=== PATIENT | female | born 1985 | race Hispanic/Latino ===

== ENCOUNTER 2023-08-02 03:19 | Inpatient (IN) | payer MEDICAID, OTHER ==
[2023-08-02 04:20] VITALS: BMI 35.4
[2023-08-02] MEDS ORDERED: hydrALAZINE 20 MG/ML VIAL SLOW IVP PRN ×2 (04:21→07:44)
[2023-08-02] MEDS ORDERED: Promethazine HCl 25 MG/ML VIAL IM PRN ×2 (04:21→07:18)
[2023-08-02] MEDS ORDERED: Ondansetron PF 4 MG/2 ML Vial IVP PRN ×4 (04:21→07:44)
[2023-08-02] MEDS ORDERED: Oxytocin 30 units/NS 500 ML 500 ML IV SCH (04:30)
[2023-08-02] MEDS ORDERED: Bicitra 30 ML UDCUP PO PRN (04:32)
[2023-08-02] MEDS ORDERED: Famotidine/PF 20 mg/2ml Vial SLOW IVP PRN (04:32)
[2023-08-02] MEDS ORDERED: Azithromycin 500 MG in Sodium Chloride 0.9% 250 ML 250 ML IVPB SCH (04:45)
[2023-08-02] MEDS ORDERED: CEFAZOLIN 2 GM in Sodium Chloride 0.9% 100 ML IVPB SCH (04:45)
[2023-08-02 04:55] LABS: Hematocrit 36.4 % (34.9-44.5); Hemoglobin 12.2 g/dL (12.0-15.5); Mean Corpuscular HGB CONC 33.5 g/dL (32.0-36.0); Mean Corpuscular Volume 92.6 fl (81.6-98.3); Mean Platelet Volume 11.4 fl (7.4-10.4); Platelet Count 240 10x3/uL (150-450); RBC Distribution Width 13.7 % (11.5-14.5); Red Blood Cell (RBC) Count 3.93 10x6/uL (3.90-5.03); White Blood Cell (WBC) Count 10.4 10x3/uL (3.5-10.5)
[2023-08-02 05:09] LABS: Syphilis Antibody Nonreactive (Nonreactive); Syphilis Antibody Index 0.03 S/CO (<1.00 Non-Reactive)
[2023-08-02 05:11] LABS: HBSAg Index 0.13 S/CO (0-0.99); Hep B Surf Ag - L&D Non-Reactive S/CO (NonReactive)
[2023-08-02] MEDS ORDERED: Dexamethasone 4 mg/ml Vial ONE (05:16)
[2023-08-02] MEDS ORDERED: Ondansetron PF 4 MG/2 ML Vial ONE (05:16)
[2023-08-02] MEDS ORDERED: fentaNYL 50 mcg/mL 1 mL Vial ONE (05:17)
[2023-08-02] MEDS ORDERED: Oxytocin 10 UNITS/ML VIAL ONE ×2 (05:17→06:03)
[2023-08-02] MEDS ORDERED: Morphine PF 10 MG/10 ML VIAL ONE (05:18)
[2023-08-02] MEDS ORDERED: Ketorolac Tromethamine 30 MG/ML VIAL ONE (06:02)
[2023-08-02] MEDS ORDERED: Erythromycin Base 0.5% Oint 1 GM TUBE ONE (06:52)
[2023-08-02] MEDS ORDERED: Phytonadione Neonatal 1 MG/0.5 ML AMP ONE (06:53)
[2023-08-02] MEDS ORDERED: Hepatitis B Vaccine 10 MCG/0.5 ML SYR ONE (06:53)
[2023-08-02] MEDS ORDERED: Promethazine HCl 25 MG SUPP PR PRN (07:18)
[2023-08-02] MEDS ORDERED: Naloxone HCl 0.4 mg/ml Vial IVP PRN ×2 (07:18)
[2023-08-02] MEDS ORDERED: Naloxone HCl 0.4 mg/ml Vial IV PRN (07:18)
[2023-08-02] MEDS ORDERED: Meperidine HCl/PF 25 MG/ML VIAL SLOW IVP PRN (07:18)
[2023-08-02] MEDS ORDERED: fentaNYL 50 mcg/mL 1 mL Vial SLOW IVP PRN (07:18)
[2023-08-02] MEDS ORDERED: diphenhydrAMINE 50 MG/ML VIAL IVP PRN (07:18)
[2023-08-02] MEDS ORDERED: Moisturizing Cream (Eucerin) 113 GM JAR TOP PRN (07:18)
[2023-08-02] MEDS ORDERED: Ketorolac Tromethamine 30 MG/ML VIAL IVP SCH (07:30)
[2023-08-02] MEDS ORDERED: Communication Order-Pharmacy FS SCH (07:30)
[2023-08-02] MEDS ORDERED: Bisacodyl 10 MG SUPP PR PRN (07:44)
[2023-08-02] MEDS ORDERED: diphenhydrAMINE 25 MG CAP PO PRN (07:44)
[2023-08-02] MEDS ORDERED: Lanolin Ointment 7 GM TUBE TOP PRN (07:44)
[2023-08-02] MEDS ORDERED: Boostrix 0.5 ML (Tdap) VIAL (>/=7 yrs of age) IM ONE (07:44)
[2023-08-02] MEDS ORDERED: Simethicone Chewable 80 MG TAB PO PRN (07:44)
[2023-08-02] MEDS: Ferrous Sulfate 325 MG TAB PO SCH ×2 (09:38→21:34)
[2023-08-02] MEDS: Docusate 100 MG CAP PO SCH ×2 (10:49→21:34)
[2023-08-02] MEDS: Prenatal Vitamin 1 TAB PO SCH (10:49)
[2023-08-02] MEDS: Ketorolac Tromethamine 30 MG/ML VIAL IVP PRN ×2 (14:22→20:14)
[2023-08-02] MEDS ORDERED: HYDROcodone/Acetaminophen 5/325 mg Tablet PO PRN (19:30)
[2023-08-03 04:26] LABS: Hematocrit 26.8 % (34.9-44.5)
[2023-08-03 04:27] LABS: Hemoglobin 9.1 g/dL (12.0-15.5); Mean Corpuscular Hemoglobin 32.2 pg (27.0-33.0); Mean Corpuscular Volume 94.7 fl (81.6-98.3); Mean Platelet Volume 11.4 fl (7.4-10.4); Platelet Count 195 10x3/uL (150-450); RBC Distribution Width 13.9 % (11.5-14.5); Red Blood Cell (RBC) Count 2.83 10x6/uL (3.90-5.03); White Blood Cell (WBC) Count 8.7 10x3/uL (3.5-10.5)
[2023-08-03] MEDS: Ketorolac Tromethamine 30 MG/ML VIAL IVP PRN (05:50)
[2023-08-03] MEDS ORDERED: Acetaminophen 325 MG TAB PO PRN (06:49)
[2023-08-03] MEDS: Ferrous Sulfate 325 MG TAB PO SCH ×2 (07:48→21:34)
[2023-08-03] MEDS: Docusate 100 MG CAP PO SCH ×2 (07:48→21:34)
[2023-08-03] MEDS: Prenatal Vitamin 1 TAB PO SCH (07:48)
[2023-08-03] MEDS: HYDROcodone/Acetaminophen 5/325 mg Tablet PO PRN ×4 (07:48→21:35)
[2023-08-03] MEDS: Ibuprofen 800 MG TAB PO SCH ×2 (13:52→21:34)
[2023-08-04] MEDS: HYDROcodone/Acetaminophen 5/325 mg Tablet PO PRN (05:47)
[2023-08-04] MEDS: Ibuprofen 800 MG TAB PO SCH (05:47)
[2023-08-04 07:29] VITALS: BP 98/55; TEMP 98.1
[2023-08-04] MEDS: Prenatal Vitamin 1 TAB PO SCH (10:17)
[2023-08-04] MEDS: Docusate 100 MG CAP PO SCH (10:17)
== END 2023-08-04 11:30 | disposition home or self-care (01) | DRG 787 ==
LOC: CSHLD/OP 03:19 → CSHLD 04:10 → CSHPP 09:50
PROVIDERS: ADMIT Obstetrics & Gynecology; ATTEND Obstetrics & Gynecology
PROC: 10D00Z1 Extraction of Products of Conception, Low, Open Approach (ICD-10-PCS; principal; 2023-08-02)
DX: O42.02 Full-term premature rupture of membranes, onset of labor within 24 hours of rupture (principal); D62 Acute posthemorrhagic anemia; O99.02 Anemia complicating childbirth; O34.211 Maternal care for low transverse scar from previous cesarean delivery; Z3A.38 38 weeks gestation of pregnancy; Z37.0 Single live birth
CPT/HCPCS: 36415; 51702; 85027; 86780; 86850; 86900; 86901; 87340; 99285; J1100; J1885; J2274; J2405; J2590; J3010